=== PATIENT | female | born 1990 | race Caucasian/White ===

== ENCOUNTER → 2021-12-18 | Outpatient (CLI) | payer BC ==
[2014-09-24 19:30] VITALS: BP 142/72
[~2021-12-18] MED LIST: IOHEXOL 240 MG/ML 50ML VIAL. ONE; IOHEXOL 240 MG/ML 50ML VIAL. PO ONE; IOHEXOL 300 MG/ML 75 ML VIAL. IV ONE; ONDA4TAB10 SL; birth control
--- NOTE | 2021-12-18 10:45 | RAD ---
EXAMINATION: CT ABDOMEN+PELVIS W. Technique: Axial images with coronal and sagittal reconstructions are performed of abdomen and pelvis with intravenous contrast. 75 mL of Omnipaque 300 was administered intravenously. Oral contrast als o given. One or more of the following radiation dose reduction techniques was used: automated exposure control , adjustment of mA and/or KV according to patient size, and/or utilization of iterative reconstructio n technique. HISTORY: 30 years Female Reason: LEFT UPPER QUADRANT ABD PAIN COMPARISON: None. FINDINGS: The lung bases appear clear. The liver, gallbladder, spleen, pancreas, and the adrenal glands appear unremarkable. The kidneys have symmetric enhancement. There is no hydronephrosis. The there is no bowel obstruction. The appendix is not seen. There is a possibly a small suture at th e cecum base which could relate to prior appendectomy. Correlate to surgical history. The abdominal aorta is normal in caliber. No para-aortic significantly enlarged lymph node is seen. No significant free fluid or fluid collection is seen in the abdomen or pelvis. The urinary bladder appear unremarkable. The uterus and adnexa demonstrate no definite abnormality. The osseous structures appear grossly unremarkable. IMPRESSION: Unremarkable exam. Please note that overall amount of enhancement seen in the tissues is perhaps less than expected. If the patient has a swelling or pain in the extremity near the injection site, then assess for possible partial extravasation of contrast. Electronically signed by: Devan Stewart MD (12/18/2021 10:42 AM) [id number]
== END ==
LOC: CT 08:45
PROVIDERS: ATTEND Family Medicine
DX: R10.12 Left upper quadrant pain (principal)
CPT/HCPCS: 74177; Q9966; Q9967